=== PATIENT | male | born 1940 | race Caucasian/White ===

== ENCOUNTER 2017-06-09 09:54 | Day surgery (SDC) | payer MEDICARE, BC ==
[2017-06-08 13:02] LABS: ALBUMIN 3.5 G/DL (3.4-5.0); ANION GAP 5 (8-16); BLOOD UREA NITROGEN 6 MG/DL (7-18); BUN/CREATININE RATIO 8.1 (5.4-32.0); CALCIUM 8.5 MG/DL (8.5-10.1); CHLORIDE 100 MMOL/L (99-107); CREATININE 0.74 MG/DL (0.60-1.10); GLUCOSE 92 MG/DL (70-104); INR 1.3 INR; POTASSIUM 4.2 MMOL/L (3.5-5.1); PROTHROMBIN TIME 13.8 SECONDS (9.0-12.0); SODIUM 134 MMOL/L (135-145); TOTAL CARBON DIOXIDE 28.9 MMOL/L (24-32); eGFR > 90 ML/MIN
[2017-06-08 13:04] LABS: BASOPHILS # (AUTO) 0.1 X10'3 (0-0.2); BASOPHILS % (AUTO) 0.8 % (0-1); EOSINOPHILS # (AUTO) 0.2 X10'3 (0-0.9); EOSINOPHILS % (AUTO) 2.7 % (0-6); HEMATOCRIT 41.4 % (42.0-52.0); HEMOGLOBIN 14.5 g/dl (14.0-17.9); LYMPHOCYTES # (AUTO) 2.1 X10'3 (1.1-4.8); LYMPHOCYTES % (AUTO) 29.4 % (21-51); MEAN CORPUSCULAR HEMOGLOBIN 35.3 PG (27.0-31.0); MEAN CORPUSCULAR VOLUME 100.7 FL (78-98); MEAN PLATELET VOLUME 7.6 FL (7.4-10.4); MONOCYTES # (AUTO) 0.9 X10'3 (0-0.9); MONOCYTES % (AUTO) 12.8 % (2-12); NEUTROPHILS # (AUTO) 3.8 X10'3 (1.8-7.7); NEUTROPHILS % (AUTO) 54.3 % (42-75); PLATELET COUNT 252 X10'3 (140-440); RED BLOOD COUNT 4.11 X10'6 (4.70-6.10); RED CELL DISTRIBUTION WIDTH 13.2 % (11.5-14.5)
[~2017-06-09] VITALS: Ht 167.6 cm; Wt 87.5 kg
[2017-06-09] VITALS (14 sets, daily range): BP systolic 101–130; BP diastolic 59–92
[2017-06-09] MEDS ORDERED: ASPI-1265 PO (10:28)
[2017-06-09] MEDS ORDERED: ATOR20TA PO (10:28)
[2017-06-09] MEDS ORDERED: RIVA20TA PO (10:28)
[2017-06-09] MEDS ORDERED: SOTA80TA69 PO (10:28)
[2017-06-09] MEDS ORDERED: LORazepam 0.5 MG tablet PO ONE (10:45)
[2017-06-09] MEDS ORDERED: amiodarone in dextrose, iso-osm 150mg/100ml bag IV ONE (10:45)
[2017-06-09] MEDS ORDERED: normal saline 1000ml 1,000 ML IV SCH (10:45)
[2017-06-09] MEDS ORDERED: atropine 0.1mg/ml 10ml syringe IV ONE (10:45)
[2017-06-09] MEDS ORDERED: MIDAZolam 5mg/ml 2ml vial IV ONE (10:45)
[2017-06-09] MEDS ORDERED: diphenhydrAMINE 25mg capsule PO ONE (10:45)
[2017-06-09] MEDS ORDERED: morphine 10mg/ml inj. IV ONE (10:45)
[2017-06-09] MEDS ORDERED: LIDOcaine 1% (10mg/ml) 2ml vial ONE (10:57)
[2017-06-09] MEDS ORDERED: morphine 4 MG/ML inj SYRINge IV ONE (11:05)
[2017-06-09] MEDS ORDERED: morphine 4 MG/ML inj SYRINge ONE (11:07)
== END 2017-06-09 14:25 | disposition home or self-care (01) ==
LOC: SSTAY O 09:54
PROVIDERS: ATTEND Internal Medicine Cardiovascular Disease
DX: I48.0 Paroxysmal atrial fibrillation (principal); I10 Essential (primary) hypertension; E78.5 Hyperlipidemia, unspecified; G47.33 Obstructive sleep apnea (adult) (pediatric); E66.9 Obesity, unspecified; Z90.89 Acquired absence of other organs; Z79.82 Long term (current) use of aspirin; Z72.89 Other problems related to lifestyle; Z86.73 Personal history of transient ischemic attack (TIA), and cerebral infarction without residual deficits; Z98.52 Vasectomy status; Z87.891 Personal history of nicotine dependence; Z68.31 Body mass index [BMI] 31.0-31.9, adult; Z98.890 Other specified postprocedural states; Z79.899 Other long term (current) drug therapy
CPT/HCPCS: 36415; 80048; 85025; 85610; 92960; 93005; J0282; J2250; J2270; J3490; J7030; Q0163; A4620; J0461

== ENCOUNTER 2018-12-08 09:51 | Day surgery (SDC) | payer MEDICARE, BC ==
[2018-12-07 17:12] LABS: ALBUMIN 3.3 G/DL (3.4-5.0); ANION GAP 8 (8-16); BASOPHILS % (AUTO) 0.6 % (0-1); BLOOD UREA NITROGEN 6 MG/DL (7-18); BUN/CREATININE RATIO 8.1 (5.4-32.0); CALCIUM 8.4 MG/DL (8.5-10.1); CHLORIDE 100 MMOL/L (99-107); CREATININE 0.74 MG/DL (0.60-1.10); EOSINOPHILS # (AUTO) 0.1 X10'3 (0-0.9); EOSINOPHILS % (AUTO) 1.4 % (0-6); GLUCOSE 91 MG/DL (70-104); HEMOGLOBIN 14.5 g/dl (14.0-17.9); LYMPHOCYTES # (AUTO) 1.5 X10'3 (1.1-4.8); LYMPHOCYTES % (AUTO) 23.1 % (21-51); MEAN CORPUSCULAR HEMOGLOBIN 33.7 PG (27.0-31.0); MEAN CORPUSCULAR HGB CONC 34.6 g/dL (33.0-36.5); MEAN CORPUSCULAR VOLUME 97.4 FL (78-98); MEAN PLATELET VOLUME 7.3 FL (7.4-10.4); MONOCYTES # (AUTO) 0.7 X10'3 (0-0.9); MONOCYTES % (AUTO) 11.3 % (2-12); NEUTROPHILS # (AUTO) 4.2 X10'3 (1.8-7.7); NEUTROPHILS % (AUTO) 63.6 % (42-75); PLATELET COUNT 322 X10'3 (140-440); POTASSIUM 4.2 MMOL/L (3.5-5.1); RED BLOOD COUNT 4.31 X10'6 (4.70-6.10); RED CELL DISTRIBUTION WIDTH 13.2 % (11.5-14.5); SODIUM 134 MMOL/L (135-145); TOTAL CARBON DIOXIDE 25.8 MMOL/L (24-32); WHITE BLOOD COUNT 6.6 X10'3 (4.5-11.0); eGFR > 90 ML/MIN
[~2018-12-08] VITALS: Ht 167.6 cm; Wt 81.7 kg
[2018-12-08] VITALS (14 sets, daily range): BP systolic 91–113; BP diastolic 54–77
[~2018-12-08 09:51] MED LIST: ASPI-1265 PO; ATOR20TA PO; RIVA20TA PO; SOTA80TA73 PO
[2018-12-08] MEDS ORDERED: LORazepam 0.5 MG tablet PO ONE (10:10)
[2018-12-08] MEDS ORDERED: diphenhydrAMINE 25mg capsule PO ONE (10:10)
[2018-12-08] MEDS ORDERED: MIDAZolam 5mg/ml 2ml vial IV ONE (10:10)
[2018-12-08] MEDS ORDERED: normal saline 1000ml 1,000 ML IV SCH (10:10)
[2018-12-08] MEDS ORDERED: atropine 0.1mg/ml 10ml syringe IV ONE (10:10)
[2018-12-08] MEDS ORDERED: amiodarone in dextrose, iso-osm 150mg/100ml bag IV ONE (10:10)
[2018-12-08] MEDS ORDERED: morphine 10mg/ml inj. IV ONE (10:10)
[2018-12-08] MEDS ORDERED: RIVA15TA PO (10:27)
== END 2018-12-08 12:50 | disposition home or self-care (01) ==
LOC: SSTAY O 09:51
PROVIDERS: ATTEND Internal Medicine Cardiovascular Disease
DX: I48.0 Paroxysmal atrial fibrillation (principal); E78.5 Hyperlipidemia, unspecified; G47.30 Sleep apnea, unspecified; I10 Essential (primary) hypertension; E66.9 Obesity, unspecified; Z68.29 Body mass index [BMI] 29.0-29.9, adult; Z86.73 Personal history of transient ischemic attack (TIA), and cerebral infarction without residual deficits; Z79.899 Other long term (current) drug therapy; Z79.01 Long term (current) use of anticoagulants; Z79.82 Long term (current) use of aspirin; Z98.890 Other specified postprocedural states; Z98.52 Vasectomy status
CPT/HCPCS: 36415; 80048; 85025; 85610; 92960; 93005; J0282; J0461; J2250; J2270; J7030; Q0163